=== PATIENT | female | born 1975 | race Caucasian/White ===

== ENCOUNTER 2024-03-29 08:10 | Emergency (ER) | payer OTHER ==
[2024-03-29 08:21] VITALS: BP 135/101; PULSE 71; RESP 18; TEMP 97.1; BMI 29.2
[2024-03-29] MEDS ORDERED: ACETAMINOPHEN INJECTION 100 ML IVPB ONE (09:11)
[2024-03-29] MEDS ORDERED: FAMOTIDINE 20 MG/50 ML IVPB 20 MG/50 ML MG IVPB ONE (09:12)
[2024-03-29] MEDS ORDERED: ONDANSETRON 4 MG/2 ML VIAL ONE (09:12)
[2024-03-29] MEDS: ONDANSETRON 4 MG/2 ML VIAL IVPUSH ONE (09:30)
[2024-03-29] MEDS: SODIUM CHLORIDE 0.9% 500 ML INFUS.BAG IV ONE (09:30)
[2024-03-29] MEDS: FAMOTIDINE 20 MG/50 ML IVPB 20 MG/50 ML MG IVPB ONE (09:35)
[2024-03-29] MEDS: ACETAMINOPHEN 1000 MG/100 ML BAG IVPB ONE (09:35)
[2024-03-29 10:00] LABS: BASO % 2.6 % (0-2.0); EOS % 6.2 % (0-4.5); HEMATOCRIT 34.9 % (32.4-45.2); HEMOGLOBIN 11.6 GM/dL (10.7-15.3); LYMPH % 28.4 % (8-40); MCH 27.9 pg (25.7-33.7); MCHC 33.3 g/dl (32.0-36.0); MEAN CELL VOLUME 83.8 fl (80-96); MEAN PLT VOLUME 9.2 fl (7.5-11.1); MONO % 8.5 % (3.8-10.2); NEUT % 54.3 % (42.8-82.8); PLATELET COUNT 356 10^3/uL (134-434); RBC 4.17 M/mm3 (3.60-5.2); RDW 13.3 % (11.6-15.6); WHITE BLOOD COUNT 5.5 K/mm3 (4.0-10.0)
[2024-03-29 10:03] LABS: INR 0.99 (0.83-1.09); PROTHROMBIN TIME (PATIENT) 11.4 SEC (9.7-13.0)
[2024-03-29 10:06] LABS: ACTIVATED PTT 29.8 SECONDS (25.2-36.5)
[2024-03-29 10:14] LABS: POTASSIUM 4.5 mmol/L (3.5-5.1)
[2024-03-29 10:16] LABS: CALCIUM 8.6 mg/dL (8.5-10.1)
[2024-03-29 10:17] LABS: ALBUMIN 3.3 g/dl (3.4-5.0); BLOOD UREA NITROGEN 13.2 mg/dL (7-18)
[2024-03-29 10:20] LABS: CREATININE 0.7 mg/dL (0.55-1.3)
[2024-03-29 10:21] LABS: BILIRUBIN,TOTAL 0.2 mg/dL (0.2-1); TOT PROT 6.8 g/dl (6.4-8.2)
== END 2024-03-29 11:32 | disposition home or self-care (01) ==
LOC: JER 08:10
PROC: 3E033GC Introduction of Other Therapeutic Substance into Peripheral Vein, Percutaneous Approach (ICD-10-PCS; principal; 2024-03-29)
PROC: 3E033NZ Introduction of Analgesics, Hypnotics, Sedatives into Peripheral Vein, Percutaneous Approach (ICD-10-PCS; 2024-03-29)
PROC: 3E033GC Introduction of Other Therapeutic Substance into Peripheral Vein, Percutaneous Approach (ICD-10-PCS; 2024-03-29)
DX: R10.11 Right upper quadrant pain (principal); R11.2 Nausea with vomiting, unspecified
CPT/HCPCS: 36415; 76705-TC; 80053; 83690; 84484; 85025; 85610; 85730; 86850; 86900; 86901; 93005; 93010; 99285-25; J0131